=== PATIENT | male | born 1980 | race Caucasian/White ===

== ENCOUNTER 2017-10-25 20:37 | Observation (INO) | payer MEDICAID ==
[~2017-10-25] VITALS: Ht 172.7 cm; Wt 73.0 kg
[~2017-10-25 20:37] MED LIST: DIVA500T2 PO
[2017-10-25 20:44] VITALS: BP 132/77
[2017-10-25] MEDS ORDERED: OXCA600T PO (20:56)
[2017-10-25 21:51] LABS: AMPHETAMINE SCREEN, URINE Positive (Negative); BARBITURATE SCREEN, URINE Negative (Negative); BENZODIAZEPINE SCREEN, URINE Negative (Negative); CANNABINOID SCREEN, URINE Negative (Negative); COCAINE SCREEN, URINE Negative (Negative); METHADONE SCREEN, URINE Negative (Negative); OPIATE SCREEN, URINE Negative (Negative)
[2017-10-25 21:55] LABS: BASOPHILS # (AUTO) 0.02 x10^3/uL (0-0.1); BASOPHILS % (AUTO) 0 % (0-1); EOSINOPHILS # (AUTO) 0.73 x10^3/uL (0-0.4); EOSINOPHILS % (AUTO) 9 % (1-7); LYMPHOCYTES # (AUTO) 2.58 x10^3/uL (1-3.4); LYMPHOCYTES % (AUTO) 33 % (22-44); MD NO; MEAN CORPUSCULAR HGB CONC 33.9 g/dL (33.2-36.2); MEAN CORPUSCULAR VOLUME 88.4 fL (81-97); MEAN PLATELET VOLUME 7.8 fL (7.4-10.4); MONOCYTES # (AUTO) 0.51 x10^3/uL (0.2-0.8); MONOCYTES % (AUTO) 6 % (2-9); NEUTROPHILS % (AUTO) 52 % (42-75); PLATELET COUNT 254 x10^3/uL (130-400); RED BLOOD COUNT 5.25 x10^6/uL (4.38-5.82)
[2017-10-25 22:01] LABS: ALANINE AMINOTRANSFERASE 27 U/L (12-78); ALBUMIN 3.7 g/dL (3.4-5.0); ANION GAP 9 mmol/L (5-15); CALCIUM 8.3 mg/dL (8.5-10.1); CHLORIDE 109 mmol/L (98-107); CREATININE 0.85 mg/dL (0.7-1.3)
[2017-10-25 22:02] LABS: SALICYLATE LEVEL < 1.7 mg/dL (2.8-20.0)
[2017-10-25 22:03] LABS: ALKALINE PHOSPHATASE 70 U/L (45-117); BILIRUBIN,TOTAL 0.2 mg/dL (0.2-1.0)
[2017-10-25 22:05] LABS: ACETAMINOPHEN < 2 mcg/mL (10-30)
[2017-10-26] MEDS ORDERED: POLYETHYLENE GLYCOL 17 GM PACKET PO PRN (00:30)
[2017-10-26] MEDS ORDERED: ONDANSETRON ODT 4 MG PO PRN (00:30)
[2017-10-26] MEDS ORDERED: ACETAMINOPHEN 325 MG TABLET PO PRN (00:30)
[2017-10-26] MEDS ORDERED: BISACODYL 10 MG SUPP PR PRN (00:30)
[2017-10-26] MEDS ORDERED: NICOTINE 14MG/24 HR PATCH.TD24 TD SCH (00:30)
[2017-10-26] MEDS ORDERED: SENNA/DOCUSATE TABLET PO SCH (09:00)
[2017-10-26] MEDS ORDERED: OXCARBAZEPINE 300MG TABLET PO SCH (09:00)
== END 2017-10-26 05:21 | disposition home or self-care (01) ==
LOC: ED 23:16 → EDIP 23:33 → UNDOADMOB 23:33 → 3NE 10-26 00:30 → ED 10-26 05:21 → EDIP 10-26 05:21
PROVIDERS: ADMIT Internal Medicine; ATTEND Internal Medicine
DX: R45.851 Suicidal ideations (principal); F31.9 Bipolar disorder, unspecified; F17.210 Nicotine dependence, cigarettes, uncomplicated; F19.10 Other psychoactive substance abuse, uncomplicated
CPT/HCPCS: 36415; 80053; 80307; 80329; 85025; 99285; G0378; 99284; G0480

== ENCOUNTER 2018-06-17 12:43 | Emergency (ER) | payer MEDICAID ==
[~2018-06-17] VITALS: Ht 172.7 cm; Wt 75.3 kg
[~2018-06-17 12:43] MED LIST changes: +OXCA600T10 PO
[2018-06-17 13:09] VITALS: BP 132/80
== END 2018-06-17 13:56 | disposition home or self-care (01) ==
LOC: ED 13:50
DX: J02.8 Acute pharyngitis due to other specified organisms (principal); B97.89 Other viral agents as the cause of diseases classified elsewhere
CPT/HCPCS: 99283

== ENCOUNTER 2018-11-17 07:24 | Emergency (ER) | payer MEDICAID ==
[~2018-11-17] VITALS: Ht 172.7 cm; Wt 86.7 kg
--- NOTE | 2018-11-17 08:37 | NUR ---
TO ROOM AT THIS TIME
--- NOTE | 2018-11-17 08:46 | NUR ---
PT AMBULATORY TO ROOM 17. PT AAO X 4, DRESSED IN GOWN, VSS. PT C/O "SEVERE ALLERGIES, CHEST COLD", +PROD COUGH X4 DAYS, RECENT EXPOSURE TO SAME ILLNESS & SECOND-HAND SMOKE. PT ON ROOM AIR, RESTING COMFORTABLY ON GURNEY, CALL LIGHT AND SIDERAILS X [address] FALL PRECUATIONS IN PLACE.
[2018-11-17 09:19] VITALS: BP 136/93
== END 2018-11-17 09:21 | disposition home or self-care (01) ==
LOC: ED 09:14
DX: J00 Acute nasopharyngitis [common cold] (principal)
CPT/HCPCS: 71046; 99283

== ENCOUNTER 2019-03-27 23:49 | Emergency (ER) | payer MEDICAID ==
[~2019-03-27] VITALS: Ht 170.2 cm; Wt 95.0 kg
[2019-03-28] MEDS ORDERED: SODIUM CHLORIDE FLUSH 10ML SYR IVF ONE
[2019-03-28] MEDS ORDERED: SODIUM CHLORIDE 0.9% 1,000ML IVBOLUS ONE
[2019-03-28 00:25] LABS: ALANINE AMINOTRANSFERASE 54 U/L (12-78); ALBUMIN 4.1 g/dL (3.4-5.0); ANION GAP 7 mmol/L (5-15); CALCIUM 8.5 mg/dL (8.5-10.1); CHLORIDE 111 mmol/L (98-107)
[2019-03-28 00:29] LABS: ALKALINE PHOSPHATASE 70 U/L (45-117); BILIRUBIN,TOTAL 0.7 mg/dL (0.2-1.0); CREATININE 0.79 mg/dL (0.7-1.3); TOTAL PROTEIN 7.6 g/dL (6.4-8.2); TROPONIN I < 0.015 ng/mL (0.000-0.045)
[2019-03-28 00:51] LABS: BASOPHILS # (AUTO) 0.04 x10^3/uL (0-0.1); BASOPHILS % (AUTO) 1 % (0-1); EOSINOPHILS # (AUTO) 0.21 x10^3/uL (0-0.4); EOSINOPHILS % (AUTO) 3 % (1-7); LYMPHOCYTES # (AUTO) 2.14 x10^3/uL (1-3.4); LYMPHOCYTES % (AUTO) 29 % (22-44); MD SCAN; MEAN CORPUSCULAR HEMOGLOBIN 29.3 pg (27.5-34.5); MEAN CORPUSCULAR HGB CONC 33.2 g/dL (33.2-36.2); MEAN CORPUSCULAR VOLUME 88.4 fL (81-97); MEAN PLATELET VOLUME 7.9 fL (7.4-10.4); MONOCYTES # (AUTO) 0.57 x10^3/uL (0.2-0.8); MONOCYTES % (AUTO) 8 % (2-9); NEUTROPHILS # (AUTO) 4.39 x10^3/uL (1.8-6.8); NEUTROPHILS % (AUTO) 60 % (42-75); PLATELET COUNT 296 x10^3/uL (130-400); RED BLOOD COUNT 5.76 x10^6/uL (4.38-5.82); RED CELL DISTRIBUTION WIDTH 12.5 % (9.4-14.8)
--- NOTE | 2019-03-28 00:52 | NUR ---
PT WITH IVF FINISHED AND FEELING BETTER.
[2019-03-28 00:53] VITALS: BP 137/92
== END 2019-03-28 01:28 | disposition home or self-care (01) ==
LOC: ED 03-28 00:59
DX: R55 Syncope and collapse (principal); E86.0 Dehydration; E86.9 Volume depletion, unspecified; E86.1 Hypovolemia
CPT/HCPCS: 36415; 71045; 80053; 83690; 84484; 85025; 93005; 96360; 99284; J7030

== ENCOUNTER 2019-06-26 09:07 | Emergency (ER) | payer MEDICAID ==
[~2019-06-26] VITALS: Ht 172.7 cm; Wt 92.0 kg
[2019-06-26 09:15] VITALS: BP 155/104
[2019-06-26 10:15] LABS: RAPID INFLUENZA A Negative (Negative); RAPID INFLUENZA B Negative (Negative)
== END 2019-06-26 10:29 | disposition home or self-care (01) ==
LOC: ED 10:15
DX: J00 Acute nasopharyngitis [common cold] (principal)
CPT/HCPCS: 71046; 87400; 99284

== ENCOUNTER 2019-07-01 05:48 | Emergency (ER) | payer MEDICAID ==
[~2019-07-01] VITALS: Ht 175.3 cm; Wt 92.2 kg
[2019-07-01 05:51] VITALS: BP 157/110
== END 2019-07-01 06:25 | disposition home or self-care (01) ==
LOC: ED 06:04
DX: J06.9 Acute upper respiratory infection, unspecified (principal)
CPT/HCPCS: 99283

== ENCOUNTER 2019-08-25 18:32 | Emergency (ER) | payer MEDICAID ==
[~2019-08-25] VITALS: Ht 172.7 cm; Wt 99.0 kg
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
[2019-08-25] MEDS ORDERED: FAMOTIDINE 20 MG TABLET PO ONE (19:30)
[2019-08-25] MEDS ORDERED: ONDANSETRON ODT 8 MG PO STA (19:36)
[2019-08-25] MEDS ORDERED: FAMOTIDINE 20 MG TABLET ONE (19:37)
[2019-08-25] MEDS ORDERED: ONDANSETRON ODT 8 MG ONE (19:48)
[2019-08-25 19:50] VITALS: BP 168/90
--- NOTE | 2019-08-25 19:51 | NUR ---
PT MEDICATED PER AUG. NAD. VSS
[2019-08-25 19:52] LABS: BASOPHILS # (AUTO) 0.04 x10^3/uL (0-0.1); BASOPHILS % (AUTO) 0 % (0-1); EOSINOPHILS # (AUTO) 0.69 x10^3/uL (0-0.4); EOSINOPHILS % (AUTO) 7 % (1-7); LYMPHOCYTES # (AUTO) 2.89 x10^3/uL (1-3.4); LYMPHOCYTES % (AUTO) 29 % (22-44); MD NO; MEAN CORPUSCULAR HEMOGLOBIN 29.5 pg (27.5-34.5); MEAN CORPUSCULAR HGB CONC 33.8 g/dL (33.2-36.2); MEAN CORPUSCULAR VOLUME 87.2 fL (81-97); MEAN PLATELET VOLUME 7.6 fL (7.4-10.4); MONOCYTES # (AUTO) 0.79 x10^3/uL (0.2-0.8); MONOCYTES % (AUTO) 8 % (2-9); NEUTROPHILS # (AUTO) 5.48 x10^3/uL (1.8-6.8); NEUTROPHILS % (AUTO) 55 % (42-75); PLATELET COUNT 266 x10^3/uL (130-400); RED BLOOD COUNT 5.63 x10^6/uL (4.38-5.82); RED CELL DISTRIBUTION WIDTH 12.6 % (9.4-14.8)
[2019-08-25 20:03] LABS: ALANINE AMINOTRANSFERASE 89 U/L (12-78); ALBUMIN 3.9 g/dL (3.4-5.0); ANION GAP 7 mmol/L (5-15); CHLORIDE 109 mmol/L (98-107); CREATININE 0.91 mg/dL (0.7-1.3)
[2019-08-25 20:08] LABS: ALKALINE PHOSPHATASE 63 U/L (45-117); BILIRUBIN,TOTAL 0.2 mg/dL (0.2-1.0); TOTAL PROTEIN 7.5 g/dL (6.4-8.2); TROPONIN I < 0.015 ng/mL (0.000-0.045)
[2019-08-25 20:08] LABS: AMPHETAMINE SCREEN, URINE Negative (Negative); BARBITURATE SCREEN, URINE Positive (Negative); BENZODIAZEPINE SCREEN, URINE Negative (Negative); CANNABINOID SCREEN, URINE Negative (Negative); COCAINE SCREEN, URINE Negative (Negative); METHADONE SCREEN, URINE Negative (Negative); OPIATE SCREEN, URINE Negative (Negative)
== END 2019-08-25 20:40 | disposition home or self-care (01) ==
LOC: ED 19:45
DX: K29.00 Acute gastritis without bleeding (principal); R11.2 Nausea with vomiting, unspecified; F15.10 Other stimulant abuse, uncomplicated
CPT/HCPCS: 36415; 74021; 80053; 80307; 84484; 85025; 93005; 99285; Q0162

== ENCOUNTER 2020-02-16 21:22 | Emergency (ER) | payer MEDICAID ==
[~2020-02-16] VITALS: Ht 172.7 cm; Wt 92.4 kg
[2020-02-16 21:26] VITALS: BP 155/116
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
--- NOTE | 2020-02-16 22:57 | NUR ---
Patient/Caregiver given discharge instructions and they have confirmed that they understand the instructions. Patient ambulatory with steady gait. Pt given community resources for drug counseling.
== END 2020-02-16 22:59 | disposition other institution (70) ==
LOC: ED 22:02
DX: S60.221A Contusion of right hand, initial encounter (principal); W22.8XXA Striking against or struck by other objects, initial encounter; Y93.89 Activity, other specified; Y92.009 Unspecified place in unspecified non-institutional (private) residence as the place of occurrence of the external cause; Y99.8 Other external cause status
CPT/HCPCS: 99283

== ENCOUNTER 2020-11-26 10:08 | Emergency (ER) | payer MEDICAID ==
[~2020-11-26] VITALS: Ht 175.3 cm; Wt 92.3 kg
[2020-11-26 10:16] VITALS: BP 167/119
--- NOTE | 2020-11-26 10:36 | NUR ---
PT AMBULATED TO ROOM FROM TRIAGE. PT STATED THAT HE AHS HAD SOB AND COUGH X4 DAYS. PT HAS HISTORY OF ASTHMA AND STATED THAT IT FEELS LIKE THAT. PT DENIES ANY FEVER, N/V/D, OR CP. PT STATED THAT HE RAN OUT OF HIS INHALER.
--- NOTE | 2020-11-26 11:06 | NUR ---
DISCHARGE INSTRUCTIONS REVIEWED WITH PT. ALL QUESTIONS ANSWERED AT THIS TIME.
== END 2020-11-26 11:09 | disposition home or self-care (01) ==
LOC: ED 10:52
DX: J98.01 Acute bronchospasm (principal); Z87.891 Personal history of nicotine dependence
CPT/HCPCS: 71046; 93005; 99283

== ENCOUNTER 2021-02-16 12:10 | Emergency (ER) | payer MEDICAID ==
[~2021-02-16] VITALS: Ht 172.7 cm; Wt 100.0 kg
[2021-02-16 12:26] VITALS: BP 171/122
--- NOTE | 2021-02-16 12:37 | NUR ---
Patient given discharge instructions and Rx, they have confirmed that they understand the instructions. Patient ambulatory with steady gait.
== END 2021-02-16 13:07 | disposition home or self-care (01) ==
LOC: ED 12:20
DX: S39.012A Strain of muscle, fascia and tendon of lower back, initial encounter (principal); Z87.891 Personal history of nicotine dependence; Z88.0 Allergy status to penicillin; X50.0XXA Overexertion from strenuous movement or load, initial encounter; Y93.89 Activity, other specified; Y92.89 Other specified places as the place of occurrence of the external cause; Y99.8 Other external cause status
CPT/HCPCS: 99283

== ENCOUNTER 2021-02-21 03:55 | Emergency (ER) | payer MEDICAID ==
[~2021-02-21] VITALS: Ht 172.7 cm; Wt 100.0 kg
[2021-02-21 04:06] VITALS: BP 168/86
--- NOTE | 2021-02-21 06:32 | NUR ---
PT CALLED TO BE SEEN BY DOCTOR AND PT STATED THAT HE CHANGED HIS MIND AND LEFT
== END 2021-02-21 06:34 ==
LOC: ED 04:15
DX: R10.9 Unspecified abdominal pain (principal); R00.0 Tachycardia, unspecified; Z53.21 Procedure and treatment not carried out due to patient leaving prior to being seen by health care provider
CPT/HCPCS: 93005